=== PATIENT | male | born 1990 | race American Indian/Alaskan Native ===

== ENCOUNTER 2020-03-26 04:42 | Emergency (ER) | payer OTHER ==
--- NOTE | 2020-03-26 05:26 | XRay Report ---
CHEST 2 VIEWS INDICATION / CLINICAL INFORMATION: chest pain. COMPARISON: None available. FINDINGS: SUPPORT DEVICES: None. HEART / MEDIASTINUM: No significant abnormality. LUNGS / PLEURA: No significant pulmonary or pleural abnormality. No pneumothorax. ADDITIONAL FINDINGS: No significant additional findings. IMPRESSION: 1. No acute findings. Signer Name: Polly Yun MD Signed: 03/26/2020 5:22 AM Workstation Name: [id number]
[2020-03-26 05:49] LABS: Basophils % (Auto) 0.6 % (0.0-1.8); Eosinophils # (Auto) 0.1 K/mm3 (0.0-0.4); Eosinophils % (Auto) 2.6 % (0.0-4.3); Hematocrit 40.8 % (35.5-45.6); Hemoglobin 13.3 gm/dl (11.8-15.2); Lymphocytes # (Auto) 1.7 K/mm3 (1.2-5.4); Lymphocytes % (Auto) 37.9 % (13.4-35.0); Mean Corpuscular HGB Conc 33 % (32-34); Mean Corpuscular Volume 93 fl (84-94); Monocytes # (Auto) 0.6 K/mm3 (0.0-0.8); Monocytes % (Auto) 13.6 % (0.0-7.3); Platelet Count 163 K/mm3 (140-440); Red Blood Count 4.38 M/mm3 (3.65-5.03)
[2020-03-26 05:59] LABS: Alanine Aminotransferase 15 units/L (7-56); Albumin 4.2 g/dL (3.9-5); BUN/Creatinine Ratio 10; Blood Urea Nitrogen 9 mg/dL (9-20); Calcium 8.5 mg/dL (8.4-10.2); Hemolysis Index 7
[2020-03-26] MEDS ORDERED: PANTOPRAZOLE 40 MG TAB PO ONE (06:43)
[2020-03-26] MEDS ORDERED: ALUM-MAG HYDROXIDE-SIMETHICONE 200-200-20MG/5ML ORAL LIQD 30 ML PO ONE (06:43)
--- NOTE | 2020-03-26 06:51 | Emergency Department Report ---
ED Chest Pain HPI - General Chief Complaint: Chest Pain Stated Complaint: CHEST PAIN Time Seen by Provider: 03/26/20 06:13 Source: patient Mode of arrival: Ambulatory Limitations: No Limitations - History of Present Illness Initial Comments: This is a 29-year old male HIV positive and compliant with his antiretroviral viral therapy. He is here for evaluation of chest pain. He describes a mild and persistent dull ache in his sternal region since 730 last night and onset was gradual. There has been no associated symptoms to include nausea vomiting s weating dyspnea or cough. He states when he sits up he feels a bit heavy. There is no radiation of the pain. He states he has not had anything like this before. Patient denies a family history of CAD or VTE. He has no personal history of the same. He has had no recent travel. He states he has been recently well. MD Complaint: chest pain -: Gradual, hour(s) Onset: during rest Pain Location: substernal Pain Radiation: none Severity: mild Severity scale (0 -10): 0 Quality: other (See HPI) Consistency: constant Improves With: nothing Worsens With: other (Sitting up causes a heaviness) re: denies: nausea, vomting, diaphoresis, dyspnea, sense of impending doom Other Symptoms: denies: cough, fever, syncope Treatments Prior to Arrival: none Aspirin use within the Past 7 Days: (0) No - Related Data Previous Rx's Medication Instructions Recorded Last Taken Type Lansoprazole [Prevacid] 30 mg PO DAILY #14 capsule. 03/26/20 Unknown Rx Allergies Allergy/AdvReac Type Severity Reaction Status Date / Time No Known Allergies Allergy Unverified 03/26/20 05:01 Heart Score - HEART Score History: Slightly suspicious EKG: Non-specific Age: < 45 Risk factors: No known risk factors Troponin: < normal limit HEART Score: 1 - Critical Actions Critical Actions: 0-3 pts:0.9-1.7%risk of adverse cardiac event.Candidate for discharge ED Review of Systems ROS: Stated complaint: CHEST PAIN Other details as noted in HPI Constitutional: denies: chills, fever Eyes: denies: eye pain, eye discharge, vision change ENT: denies: ear pain, throat pain Respiratory: denies: cough, shortness of breath, wheezing Cardiovascular: chest pain. denies: palpitations Endocrine: no symptoms reported Gastrointestinal: denies: abdominal pain, nausea, diarrhea Genitourinary: denies: urgency, dysuria Musculoskeletal: denies: back pain, joint swelling, arthralgia Skin: denies: rash, lesions Neurological: denies: headache, weakness, paresthesias Psychiatric: denies: anxiety, depression Hematological/Lymphatic: denies: easy bleeding, easy bruising ED Past Medical Hx - Past Medical History Previous Medical History?: No - Surgical History Past Surgical History?: No - Social History Smoking Status: Never Smoker Substance Use Type: None - Medications Home Medications: Home Medications Medication Instructions Recorded Confirmed Last Taken Type Lansoprazole [Prevacid] 30 mg PO DAILY #14 capsule. 03/26/20 Unknown Rx ED Physical Exam - General Limitations: No Limitations General appearance: alert, in no apparent distress - Head Head exam: Present: atraumatic, normocephalic - Eye Eye exam: Present: normal appearance. Absent: scleral icterus - ENT ENT exam: Present: mucous membranes moist - Neck Neck exam: Present: normal inspection - Respiratory Respiratory exam: Present: normal lung sounds bilaterally. Absent: respiratory distress - Cardiovascular Cardiovascular Exam: Present: regular rate, normal rhythm. Absent: systolic murmur, diastolic murmur, rubs, gallop - GI/Abdominal GI/Abdominal exam: Present: soft, normal bowel sounds. Absent: distended, te nderness, guarding, rebound, rigid - Rectal Rectal exam: Present: deferred - Extremities Exam Extremities exam: Present: normal inspection, normal capillary refill. Absent: pedal edema, joint swelling, calf tenderness - Back Exam Back exam: Present: normal inspection - Neurological Exam Neurological exam: Present: alert, oriented X3, CN II-XII intact. Absent: motor sensory deficit - Psychiatric Psychiatric exam: Present: normal affect, normal mood - Skin Skin exam: Present: warm, dry, intact, normal color. Absent: rash ED Course Vital Signs 03/26/20 03/26/20 03/26/20 05:21 05:25 06:08 Pulse Rate 75 82 71 Respiratory 16 19 Rate Blood Pressure 136/85 127/86 [Left] O2 Sat by Pulse 100 100 Oximetry 03/26/20 07:15 Pulse Rate 71 Respiratory 18 Rate Blood Pressure 130/83 [Left] O2 Sat by Pulse 100 Oximetry - Reevaluation(s) Reevaluation #1: Patient states benefit with GI medicine. He is resting comfortably. I did not see a benefit to hospitalization. Patient should follow-up. Although there is no indication of cardiac etiology I will refer him to the on-call field marketing coordinator and primary care physician. 03/26/20 08:20 JARROD score - Jarrod Score Age > 65: (0) No Aspirin use within the Past 7 Days: (0) No 3 or more CAD Risk Factors: (0) No 2 or more Angina events in past 24 hrs: (0) No Known CAD with more than 50% Stenosis: (0) No Elevated Cardiac Markers: (0) No ST Deviation Greater than 0.5mm: (0) No JARROD Score: 0 ED Medical Decision Making - Lab Data Result diagrams: 03/26/20 05:12 03/26/20 05:12 Laboratory Results - last 24 hr 03/26/20 03/26/20 05:12 05:12 WBC 4.6 RBC 4.38 Hgb 13.3 Hct 40.8 MCV 93 MCH 30 MCHC 33 RDW 13.0 L Plt Count 163 Lymph % (Auto) 37.9 H [place] % (Auto) 13.6 H Eos % (Auto) 2.6 Baso % (Auto) 0.6 Lymph # (Auto) 1.7 [place] # (Auto) 0.6 Eos # (Auto) 0.1 Baso # (Auto) 0.0 Seg Neutrophils % 45.3 Seg Neutrophils # 2.1 Sodium 139 Potassium 3.7 Chloride 105.1 Carbon Dioxide 29 Anion Gap 9 BUN 9 Creatinine 0.9 Estimated GFR > 60 BUN/Creatinine Ratio 10 Glucose 91 Calcium 8.5 Total Bilirubin 0.50 AST 21 ALT 15 Alkaline Phosphatase 63 Troponin T < 0.010 Total Protein 7.2 Albumin 4.2 Albumin/Globulin Ratio 1.4 Laboratory Results - last 24 hr 03/26/20 03/26/20 03/26/20 05:12 05:12 06:49 WBC 4.6 RBC 4.38 Hgb 13.3 Hct 40.8 MCV 93 MCH 30 MCHC 33 RDW 13.0 L Plt Count 163 Lymph % (Auto) 37.9 H [place] % (Auto) 13.6 H Eos % (Auto) 2.6 Baso % (Auto) 0.6 Lymph # (Auto) 1.7 [place] # (Auto) 0.6 Eos # (Auto) 0.1 Baso # (Auto) 0.0 Seg Neutrophils % 45.3 Seg Neutrophils # 2.1 Sodium 139 Potassium 3.7 Chloride 105.1 Carbon Dioxide 29 Anion Gap 9 BUN 9 Creatinine 0.9 Estimated GFR > 60 BUN/Creatinine Ratio 10 Glucose 91 Calcium 8.5 Total Bilirubin 0.50 AST 21 ALT 15 Alkaline Phosphatase 63 Troponin T < 0.010 < 0.010 Total Protein 7.2 Albumin 4.2 Albumin/Globulin Ratio 1.4 - EKG Data -: EKG Interpreted by Me EKG shows normal: sinus rhythm, axis, intervals, QRS complexes, ST-T waves Rate: normal - EKG Data Interpretation: other (Nonspecific J-point elevation in the V1 V2 leads probably related to lead positioning) Second EKG shows early repolarization no evidence of ischemia. 03/26/20 08:18 - Radiology Data Radiology results: report reviewed (No acute process) Critical care attestation.: If time is entered above; I have spent that time in minutes in the direct care of this critically ill patient, excluding procedure time. ED Disposition Clinical Impression: Atypical chest pain, HIV positive Disposition: DC-01 TO HOME OR SELFCARE Is pt being admited?: No Does the pt Need Aspirin: No Condition: Stable Instructions: Chest Pain (ED), Nonspecific Chest Pain, Adult Additional Instructions: We can try a course of acid reduction. It is unsure what your discomfort was due to. Dr. Vences is an community worker at Dr. Herrera is a field marketing coordinator for follow- up. Otherwise [facility] is another resource. Prescriptions: Lansoprazole [Prevacid] 30 mg PO DAILY #14 capsule. Referrals: GALE ULLOA MD [Staff Physician] - 3-5 Days NEREIDA VENCES MD [Staff Physician] - 3-5 Days [facility] [Primary Care Provider] - 2-3 Days Time of Disposition: 08:24
[2020-03-26 08:46] VITALS: BP 128/79
== END 2020-03-26 08:47 | disposition home or self-care (01) ==
LOC: ED 04:42
DX: R07.89 Other chest pain (principal); Z21 Asymptomatic human immunodeficiency virus [HIV] infection status; Z79.899 Other long term (current) drug therapy
CPT/HCPCS: 36415; 71046; 80053; 84484; 85025; 93005